=== PATIENT | female | born 2000 | race Caucasian/White ===

== ENCOUNTER 2023-04-25 15:26 | Emergency (ER) | payer OTHER, SELFPAY ==
[2023-04-25 15:42] VITALS: BP 128/72; PULSE 112; RESP 16; TEMP 36.9; O2SAT 99; BMI 26.8
--- NOTE | 2023-04-25 15:42 | ED_ITS ---
HPI - General Adult General Chief complaint: Skin/Abscess/Foreign Body Stated complaint: colonial cyst infection, urgent care didnt treat Time Seen by Provider: 04/25/23 17:10 Source: patient Mode of arrival: ambulatory Limitations: no limitations History of Present Illness HPI narrative: Patient is a 23 year old assigned female at with no reported medical history presenting to the emergency department today with a worsening buttock abscess. Patient states that she was seen at an urgent care 3 days ago where they told her that it wasn't bad enough to open yet and they started her on oral antibiotics. Patient states that the pain is getting worse. Patient denies any dizziness, lightheadedness, abdominal pain, nausea, vomiting, fever, chills, blurry vision, double vision, loss of vision, chest pain, difficulty breathing, shortness of breath, back pain, night sweats, pain with urination, increased urinary frequency, increased urinary urgency, blood in her urine or stool, syncope or a near syncopal episode, recent trauma or falls, bowel incontinence, bladder incontinence, bowel retention, bladder retention, or any other complaints at this time. Onset (ago): day(s) (4) Location: buttocks Radiation: non-radiation Severity: mild Severity scale (1-10): 3 Quality: aching and dull Pain Consistency: constant Relieving factors: none Exacerbating factors: none Associated symptoms: denies other symptoms Treatments prior to arrival: other (oral amoxicillin) Related Data Previous Rx's Medication Instructions Recorded cephalexin 500 mg capsule 500 mg PO Q6H 7 days #28 caps 04/25/23 Allergies Allergy/AdvReac Type Severity Reaction Status Date / Time No Known Allergies Allergy Verified 04/25/23 15:42 Review of Systems Constitutional: Constitutional: Reports no additional constitutional complaints, Denies chills, Denies fever(s) and Denies night sweats Eyes: Eyes: Reports no additional eye complaints, Denies blurry vision, Denies change in vision, Denies diplopia, Denies eye discharge, Denies loss of vision and Denies eye pain ENT: Denies dizziness Cardiovascular: Cardiovascular: Reports no additional cardiovascular complaints, Denies chest pain, Denies lightheadedness, Denies Loss of Cons ciousness and Denies dyspnea Respiratory: Respiratory: Reports no additional respiratory complaints and Denies dyspnea Gastrointestinal: Gastrointestinal: Reports no additional gastrointestinal complaints, Denies abdominal pain, Denies melena, Denies hematochezia, Denies change in bowel habits and Denies change in stool character Comments: gluteal cleft abscess Genitourinary: Genitourinary: Denies hematuria, Denies urinary frequency, Denies dysuria, Denies urinary incontinence, Denies urinary hesitancy and Denies urinary urgency Musculoskeletal: Musculoskeletal: Reports no additional musculoskeletal complaints, Denies numbness and Denies tingling Neurologic: Denies dizziness, Denies loss of vision, Denies numbness and Denies tingling Psychiatric: Psychiatric: Reports no additional psychiatric complaints Endocrine: Endocrine: Reports no additional endocrine complaints Hematologic/Lymphatic: Hematologic/Lymphatic: Reports no additional hematologic/lymphatic complaints Allergic/Immunologic: Allergic/Immunologic: Reports no additional allergic/immunologic complaints PMFSH Past Medical History Attestation statement: The following information was validated with the patient. Source: old records reviewed and nursing notes reviewed Social History Social History Advance Directives: No Advance Directives Information Provided: Yes Physical Exam ED Vital Signs: Vital Signs - 24 hr 04/25/23 15:42 Temperature 98.4 F Pulse Rate 112 H Respiratory Rate 16 Blood Pressure 128/72 Pulse Oximetry 99 Oxygen Delivery Method Room Air BMI result Body Mass Index 26.8 Const General: cooperative, no acute distress, alert and awake Nutritional Appearance: well nourished Orientation/consciousness: patient oriented x3 Limitations: no limitations [facility] [place] Head: Yes normal to inspection and Yes atraumatic Ears: hearing grossly normal bilaterally and external ears normal General nose exam: Normal external nose present, no nasal discharge noted and no epistaxis Face and sinus: Yes normal facial exam, No abrasion and No laceration Mouth: Normal oral and palatal mucosa present, no drooling and no muffled voice Eyes General: appearance normal, both eyes and all related structures Periorbital: periorbital findings normal Eyelids: Yes eyelids normal Conjunctivae: conjunctivae normal Pupils: Equal, round and reactive pupils present EOM: EOMs intact bilaterally Neck Neck: Yes normal visual inspection, Yes full ROM and Yes no lymphadenopathy Chest Chest palpation & inspection: normal inspection of the chest Resp Effort & Inspection: normal respiratory effort and able to speak in complete sentences GI Other: pilonidal abscess present to the upper aspect of the right gluteal cleft with minimal flutuance and erythema Neuro General: patient oriented x3 and moves all extremities Cranial nerves: Yes Equal, round and reactive pupils present Cognition (Neuro): normal cognition Motor exam (neuro): 5/5 motor strength present throughout Sensory Exam: Normal double simultaneous stimulation for sensation Coordination: [id number] test normal Extrem General: Yes normal to inspection, Yes full ROM and Yes capillary refill normal Psych Appearance: grossly normal Mental Status: mental status grossly normal Affect: normal affect Attitude: cooperative Thought process: Normal thought process present Thought content: Normal thought content present Insight: Good insight present (Psych) Course Course Course Narrative: This is a rapid medical exam: Additional HPI, ROS, PE not included below will be deferred to primary provider. Patient is a 23-year-old female presenting to the emergency department with complaint of pilonidal cyst, pain. States she went to urgent care 3 days ago, was discharged on amoxicillin, is on 3rd day, and was told to soak the area in bathtub. Patient states she does not have a bathtub. Denies prior episodes of similar symptoms. Reports has been symptomatic for 2 weeks. Also complains of nausea related to the pain. Denies fevers. Denies any spontaneous drainage since onset. Plan: labs Medications Administered Discontinued Medications Generic Name Dose Route Start Last Admin Trade Name Cuca PRN Reason Stop Dose Admin Acetaminophen 650 mg 04/25/23 18:43 04/25/23 18:53 Acetaminophen 325 Mg Tablet PO 04/25/23 18:44 650 mg ONCE ONE Administration Lidocaine HCl 5 ml 04/25/23 17:24 04/25/23 18:21 Lidocaine Hcl 1 % Mpf 5 Ml Vial SUBCUT 04/25/23 17:25 5 ml ONCE ONE Administration Procedures Abscess I/D Site: other (gluteal cleft) Side (if applicable): right Local Anesthetic: lidocaine 1% Amount of anesthesia used (mL): 5 Technique: incised with blade Amount of fluid expressed (mL): 15 Sent for culture/gram staining?: No Irrigation: No Packing used?: none Medical Decision Making Medical Decision Making MDM Narrative: Patient is a 23 year old assigned female at with no reported medical history presenting to the emergency department today with a pilonidal abscess. Patient's physical exam was as noted in the physical exam portion of this chart. Patient's blood work showed an elevated WBC count of 14.5 but was otherwise unremarkable. Patient's elevated white blood cell count is consistent with a pilonidal abscess. I explained my physical exam findings as well as all test results to the patient. I answered all questions asked by the patient. Patient's abscess was incised and drained, per procedure note, without incident. I stressed the importance of the patient taking her medication as prescribed. I stressed the importance of the patient following up with her primary care provider and with a general surgeon. I stressed the importance of the patient returning to the emergency department immediately if her symptoms were to worsen or if she were to develop any dizziness, shortness of breath, difficulty breathing, chest pain, blurry vision, loss of vision, nausea, vomiting, abdominal pain, fever, chills, back pain, or any other complaints. Patient verbalized agreement and understanding with this treatment plan and discharge. Differential Diagnosis Differential Diagnoses: The differential diagnosis associated with the presentation includes Pilonidal abscess Lab Data [facility] Lab Attestation statement: I reviewed the patient's lab results. My interpretation of these lab results are in the [facility] portion of this note. 04/25/23 15:59 04/25/23 15:59 Labs: Lab Results 04/25/23 04/25/23 Range/Units 15:59 15:59 WBC 14.5 H (4.8-10.8) X10*3/uL RBC 4.72 (4.20-5.50) X10*6/uL Hgb 13.0 (12.0-16.0) g/dl Hct 39.2 (37.0-47.0) % MCV 83.1 (80.0-98.0) fL MCH 27.5 (27.0-33.0) pg MCHC 33.2 (31.0-35.0) g/dl RDW 12.1 (11.0-16.0) % Plt Count 356 (160-400) X10*3/uL MPV 9.3 L (9.4-12.3) fL Immature Gran % (Auto) 0.5 H (0.0-0.4) % Neut % (Auto) 75.1 H (45-73) % Lymph % (Auto) 17.4 L (20-40) % Spalding % (Auto) 6.1 (2-11) % Eos % (Auto) 0.6 (0-4) % Baso % (Auto) 0.3 (0-2) % Lymph # (Auto) 2.5 (1.2-4.9) X10*3/uL Sp[place]ding # (Auto) 0.9 (0.1-1.2) X10*3/uL Eos # (Auto) 0.1 (0.0-0.4) X10*3/uL Baso # (Auto) 0.0 (0.0-0.2) X10*3/uL Abs Immat Gran (auto) 0.07 H (0.00-0.03) X10*3/uL Absolute Neuts (auto) 10.9 H (2.0-8.3) x10*3/uL Absolute Nucleated RBC 0.000 (0.0-0.012) X10*3/uL Nucleated RBC % (auto) 0.0 (0.0-0.2) /100WBC Sodium 137 (135-145) mmol/L Potassium 4.1 (3.3-5.1) mmol/L Chloride 104 (96-108) mmol/L Carbon Dioxide 21 L (22-29) mmol/L Anion Gap 16 (12-20) BUN 7 L (9-16) mg/dL Creatinine 0.70 (0.5-1.4) mg/dL Estim Creat Clear Calc 105.6 Estimated GFR > 60 Random Glucose 91 (60-115) mg/dL Calcium 9.8 (8.4-10.2) mg/dL Prescription Management I considered prescription management with: Antibiotic (patient prescribed an antibiotic. ) Discharge Plan Discharge Clinical Impression: Pilonidal abscess Patient Disposition: Home, Self-Care Instructions: Abscess Follow-up (ED) Additional Instructions: Do NOT soak the affected area. Apply a warm compress to the area. Take your antibiotics as prescribed. Follow up with your primary care provider and a general surgeon. Return to the emergency department immediately if your symptoms worsen or if you develop any dizziness, shortness of breath, difficulty breathing, chest pain, blurry vision, loss of vision, nausea, vomiting, abdominal pain, fever, chills, back pain, or any other complaints. Prescriptions: New cephalexin 500 mg capsule 500 mg PO Q6H 7 Days Qty: 28 0RF [place] [facility] [place]Provider Group] (Call to establish and follow up with a general surgeon.) Gabriella Fountain MD [Primary Care Provider] - Stand Alone Forms: Work/School Release Interventions: ED Discharge Assessment Last Done: 04/25/23 18:56 Discharge Date/Time: 04/25/23 18:56 Print Language: [place]
[2023-04-25 16:06] LABS: MANUAL DIFF FLAG NO
[2023-04-25 16:07] LABS: Basophils Percent Auto 0.3 % (0-2); Eosinophils Absolute Auto 0.1 X10*3/uL (0.0-0.4); Eosinophils Percent Auto 0.6 % (0-4); Hematocrit 39.2 % (37.0-47.0); Imm Gran Abs Auto 0.07 X10*3/uL (0.00-0.03); Imm Gran Pct Auto 0.5 % (0.0-0.4); Lymphocytes Absolute Auto 2.5 X10*3/uL (1.2-4.9); Lymphocytes Percent Auto 17.4 % (20-40); Mean Corpuscular HGB Conc 33.2 g/dl (31.0-35.0); Mean Corpuscular Hemoglobin 27.5 pg (27.0-33.0); Mean Corpuscular Volume 83.1 fL (80.0-98.0); Mean Platelet Volume 9.3 fL (9.4-12.3); Monocytes Absolute Auto 0.9 X10*3/uL (0.1-1.2); Monocytes Percent Auto 6.1 % (2-11); Neutrophils Absolute Auto 10.9 x10*3/uL (2.0-8.3); Neutrophils Percent Auto 75.1 % (45-73); Platelet Count 356 X10*3/uL (160-400); Red Blood Count 4.72 X10*6/uL (4.20-5.50); Red Cell Distribution Width 12.1 % (11.0-16.0); White Blood Count 14.5 X10*3/uL (4.8-10.8)
[2023-04-25 16:25] LABS: Anion Gap 16 (12-20); Blood Urea Nitrogen 7 mg/dL (9-16); Calcium 9.8 mg/dL (8.4-10.2); Carbon Dioxide 21 mmol/L (22-29); Chloride 104 mmol/L (96-108); Creatinine Clr Calc Pharmacy 105.6; Estimated Glomerular Filt Rate > 60; Glucose Random 91 mg/dL (60-115); Potassium 4.1 mmol/L (3.3-5.1); Sodium 137 mmol/L (135-145)
[2023-04-25] MEDS: Lidocaine HCl 1 % MPF 5 ML VIAL SUBCUT (18:21)
[2023-04-25] MEDS: Acetaminophen 325 MG TABLET 650 MG PO (18:53)
== END 2023-04-25 18:56 | disposition home or self-care (01) ==
PROVIDERS: Registered Nurse Emergency; Emergency Provider Emergency Medicine Emergency Medical Services; PCP Internal Medicine
DX: L05.01 Pilonidal cyst with abscess (principal); Z79.899 Other long term (current) drug therapy
CPT/HCPCS: 10060; 36415; 80048; 85025; 99283; 99284

== ENCOUNTER 2023-05-01 15:01 | Outpatient (AMB) | payer BC, OTHER, SELFPAY ==
[2023-05-01 15:02] VITALS: BP 125/64; PULSE 83; BMI 27.6
--- NOTE | 2023-05-01 15:02 | MHC.OFFVIS ---
Intake Vital Signs 05/01/23 15:02 Height 5 ft 1 in Weight 146 lb BMI 27.6 BP 125/64 Blood Pressure Location Rt brachial Position Sitting Pulse 83 Intake Visit Reasons: Pilonidal abscess Intake Note: This patient presents for [facility] [place] emergency department follow-up for pilonidal abscess. Patient c/o; reports last episode of draining was Friday04/29/23, reports having one more 1 pill to complete cephalexin course, denies pain. Budget Record Clerk Required: No Accompanied by: Child Allergies No Known Allergies Allergy (Verified 05/01/23 15:10) Medication List - Last Reconciled 05/01/23 by Abisai Carmona MD cephalexin 500 mg PO Q6H 7 days HPI Pilonidal abscess HPI Details 23-year-old female referred for a pilonidal disease. She went to the ER last 04/25/2023 because of pain and swelling on the sacrococcygeal area. This was deemed to be a pilonidal abscess and she underwent an I and D there and was instructed to see me in the office. She says she was placed on oral antibiotics as well. She has noted improvement although there is still some persistent swelling. She does state that she has had a lump on the area for several weeks prior to this becoming painful and swollen. [facility] Medical History (Updated 05/01/23 @ 15:06 by Abisai Carmona MD) Pilonidal disease Review of Systems Const Denies chills and Denies fever(s) Card Denies chest pain, Denies dyspnea and Denies dyspnea on exertion Resp Denies cough, Denies dyspnea and Denies dyspnea on exertion GI Denies hematochezia and Denies change in bowel habits Denies hematuria Musc Denies back pain and Denies limited range of motion Neuro Denies focal weakness and Denies convulsions Psych Denies depression and Denies mood swings Physical Exam Const General: comfortable and no acute distress Orientation/consciousness: patient oriented x3 Neck Neck: Yes no lymphadenopathy Resp Auscultation: clear to auscultation bilaterally Cardio Rhythm: regular rhythm GI Palpation (GI): Soft to palpation, nontender and no guarding Back/Spine/Pelvis Other: Induration to the right of the midline in the sacrococcygeal area, about 2 cm in diameter, midline pits in the gluteal cleft Neuro General: patient oriented x3 Assessment & Plan Assessment & Plan (1) Pilonidal disease: Code(s): L98.8 - Other specified disorders of the skin and subcutaneous tissue Plan: She had an I and D of pilonidal abscess in the ER and there is some persistent induration. She also has midline pits in the gluteal cleft. I explained the technique of excision in the operating room which will be under anesthesia. I reviewed the risks including but not limited to bleeding, infections, recurrence, poor healing, postop pain, as well as the benefits and alternatives. She wants to proceed. She understands what to expect postoperatively. Coding Level of Care Code New Pt Level 3 (60548) Diagnoses Pilonidal disease L98.8
== END 2023-05-01 15:25 | disposition home or self-care (01) ==
PROVIDERS: PCP Internal Medicine; Visit Provider Surgery
DX: L98.8 Other specified disorders of the skin and subcutaneous tissue (principal)
CPT/HCPCS: 99203

== ENCOUNTER → 2023-05-01 15:01 | Outpatient (BNVA) | payer OTHER, SELFPAY | PROVIDERS: PCP Internal Medicine; Visit Provider Surgery | DX: L98.8 Other specified disorders of the skin and subcutaneous tissue (principal); Z79.2 Long term (current) use of antibiotics | CPT/HCPCS: 99202 ==

== ENCOUNTER 2023-06-03 08:34 | Day surgery (SDC) | payer BC, OTHER, SELFPAY ==
[2023-05-29 08:25] VITALS: BMI 27.6
--- NOTE | 2023-05-30 09:59 | HO.ANESPROP2 ---
HPI - Anesthesia Eval Consult details Narrative: 23yo F for Excision Pilonidal Cyst sacroccygeal area PMFSH Active Problems Active Problems: All Active Problems (Updated 05/01/23 @ 15:06 by Abisai Carmona MD) Pilonidal disease (Acute) Past Medical History Medical History (Updated 05/01/23 @ 15:06 by Abisai Carmona MD) Pilonidal disease Meds Allergies Allergy/AdvReac Type Severity Reaction Status Date / Time No Known Allergies Allergy Verified 05/01/23 15:10 Exam Exam Date and Time: May 30, 2023 0959 Height,Weight and Vital Signs: Height 5 ft 1 in Weight 66.224 kg Pertinent Lab Results Pertinent Lab Results: Laboratory Tests 04/25/23 04/25/23 15:59 15:59 WBC 14.5 H Hgb 13.0 Hct 39.2 Plt Count 356 Sodium 137 Potassium 4.1 Chloride 104 Carbon Dioxide 21 L BUN 7 L Creatinine 0.70 Assessment and Plan Assessment Anesthesia Assessment: Chart Reviewed
[2023-06-03] VITALS (7 sets, daily range): BP systolic 99–129; BP diastolic 44–72; PULSE 76–112; RESP 16–18; TEMP 36.1–36.8; O2SAT 98–100
[2023-06-03] MEDS: Lactated Ringers 1,000 ML 100 ML IVCONT (08:56)
[2023-06-03 08:58] LABS: UPreg QC Valid YES; Urine Pregnancy NEGATIVE (NEGATIVE)
--- NOTE | 2023-06-03 09:05 | P.CONAN_ITS ---
[facility] Active Problems Active Problems: All Active Problems (Updated 05/01/23 @ 15:06 by Abisai Carmona MD) Pilonidal disease (Acute) Past Medical History Medical History Pilonidal disease Family History Family history of problems with anesthesia: No Surgical History History of Problems with Anesthesia: No Social History Social History Patient Tobacco Use Status: Never used Tobacco Are you DNR?: No Advance Directives: No Advance Directives Information Provided: Yes Nutrition Risks: No Nutritional Risk FDLMP: 05/06/23 Meds Allergies Allergy/AdvReac Type Severity Reaction Status Date / Time No Known Allergies Allergy Verified 06/03/23 08:58 Active Medications: Current Medications Lactated Ringer's (Lr) 1,000 mls @ 100 mls/hr IVCONT .Q10H MYRTLE Last Admin: 06/03/23 08:56 Dose: 100 mls/hr Cefazolin Sodium/Dextrose (Ancef) 2 gm in 50 mls @ 100 mls/hr IV PREOP ONE Stop: 06/03/23 09:06 Home Medications Medication Instructions Recorded Confirmed Last Taken Type No Known Home Meds 06/03/23 06/03/23 Unknown History Exam Exam Date and Time: June 03, 2023 09 Height,Weight and Vital Signs: Height 5 ft 1 in Weight 66.224 kg Last Vital Signs Temp 98.2 F 06/03/23 08:56 Pulse 77 06/03/23 08:56 Resp 18 06/03/23 08:56 BP 129/71 06/03/23 08:56 Pulse Ox 98 06/03/23 08:56 O2 Del Method Room Air 06/03/23 08:56 Pertinent Lab Results Pertinent Lab Results: Laboratory Tests 06/03/23 08:30 Urine Test NEGATIVE Airway Mallampati Class: II TM Dist: >3cm Neck ROM: Full Heart: S1S2 w/o murmur Lungs: clear Assessment and Plan Assessment Anesthesia Assessment: Anesthesia Plan Discussed and Chart Reviewed Final Anesthetic Review Family History of Problems with Anesthesia: No History of Problems with Anesthesia: No NPO: Yes ASA Class: I Final Preanesthetic Review: No Changes in Pt Med Stat, Meds/Allgs Chart Reviewed, Consent Obtained/Reviewed and Anes Risks/Benef Reviewed Patient Risk: Low Procedure Risk: Low Anesthetic Plan Anesthetic Plan: GA Disposition: Standard PACU
--- NOTE | 2023-06-03 09:32 | MHC.SHP ---
Pre-Procedural Eval Section A Date of Service: 06/03/23 Section B Chief Complaint: Other specified disorders of the skin and subcutan Details of Present Illness: Area of induration and drainage with midline pits in the sacrococcygeal region Relevant Family History (Specify if Yes): No Relevant Social History: None Present Medications: see Short Stay Collaborative assessment Medical History: No relevant PMH Allergies: Allergies Allergy/AdvReac Type Severity Reaction Status Date / Time No Known Allergies Allergy Verified 06/03/23 08:58 Review of Systems Sugical H&P ROS: Negative: Constitution, Cardiovascular, Respiratory, Neurological, Psychiatric, Hem-Onc, Allergic/Immunologic, Gastrointestinal, Genitourinary, Musculoskeletal, Integumentary, Endocrine and Eyes/Ears/Nose/Throat Exam Surgical H&P Exam: Normal: HEENT, Normal: Heart, Normal: Lungs, Normal: Extremities, Normal: Abdomen, Normal: Skin and Normal: Neurological Exam Comment: pilonidal cyst sacrococcygeal area Plan I have reviewed the history and physical and performed a pertinent physical examination on my patient. No changes have occurred unless specified. Time Spent With Patient Time: Total time managing care of this patient today ____ minutes.
--- NOTE | 2023-06-03 09:53 | PC.NURSE ---
patient had allergic reaction when IV antibiotic was started by anesthesia. facial/chest redness and hives noted to face. patient began vomiting. dr. garcia ordered benadryl and will be given. surgery delayed to later case due to reaction. will continue to assess. patient breathing easily and well.
--- NOTE | 2023-06-03 09:56 | HO.ANESEVENT ---
Anesthesia Event Note Date of Service: 06/03/23 Event Note: 0950: The patient was given 2G cefazolin in preop over about 10 min and developed a diffuse blotchy erythematous rash w hives. No wheezes or tracheal sounds. HR 80s, BP 129/77, Sat 99% room air. Rash and hives resolving within minutes. Benedryl 25mg ordered. Presumed allergy to cefazolin noted. Surgery delayed for about 1 hour while we monitor the patient..
[2023-06-03] MEDS: diphenhydrAMINE HCL 50 MG/ML VIAL 25 MG IVPUSH (09:58)
--- NOTE | 2023-06-03 11:28 | PC.NURSE ---
patient responded well to benadryl administration. redness, blotches, hives have all resolved.
--- NOTE | 2023-06-03 12:07 | W.PM.OPN ---
Operative Note Operative Note Date of Service: 06/03/23 Narrative: Preop diagnosis: Pilonidal cyst, sacrococcygeal area Postop diagnosis: The same Procedure: Excision of pilonidal cyst, sacrococcygeal area Surgeon: Abisai Carmona MD The patient is a 23-year-old female with recent pilonidal abscess. She was seen in the office and was noted to have an induration the sacrococcygeal area to the right of midline along with midline pits. This was consistent with her pilonidal disease. In view of the risk of recurrence, she wanted to proceed with excision. She understood the technique of excision and was aware of the risks, benefits, and alternatives. She was brought to the operating room and placed in prone position under general anesthesia via laryngeal mask airway. The buttocks were retracted with wide tape laterally. The sacrococcygeal area was prepped and draped in the usual sterile fashion. A surgical time-out was done. The patient received cefazolin 2 g IV preoperativel. She did develop a rash earlier consistent with an allergic reaction to cefazolin. She did not have any anaphylactic symptoms. There was note of an induration on the right of the midline of the sacrococcygeal area with very fine midline pits in the cleft. I marked my planned line of incision and infiltrated this with lidocaine 1%. I made an elliptical incision on the skin using blade 15. To include this indurated area as well as the midline pits. This was carried down through the full-thickness of the skin subcutaneous fat using electrocautery. I excised this entire area of induration. This was sent as specimen. The excised area was about 3.5 x 1.5 cm I used electrocautery to achieve hemostasis. Once hemostasis was confirmed, I irrigated. I reapposed the deep subcutaneous layer with interrupted 3-0 simple interrupted sutures. Skin closure was achieved with nylon 3-0 simple interrupted sutures alternating with vertical mattress sutures. I infiltrated the area with Marcaine 0.5% for postop analgesia. Dressings were applied. The procedure was then completed The patient tolerated procedure well. There were no immediate complications. Initial and final counts of sponges and instruments were correct. Estimated blood loss about 20 cc. The patient was extubated without difficulty and transferred to the recovery room with stable vital signs.
== END 2023-06-03 13:26 | disposition home or self-care (01) ==
PROVIDERS: Nurse Practitioner; PCP Internal Medicine; Visit Provider Surgery
PROC: (CPT 11771; principal; 2023-06-03 10:20)
DX: L05.01 Pilonidal cyst with abscess (principal); L76.81 Other intraoperative complications of skin and subcutaneous tissue; L27.0 Generalized skin eruption due to drugs and medicaments taken internally; T36.1X5A Adverse effect of cephalosporins and other beta-lactam antibiotics, initial encounter; Y92.238 Other place in hospital as the place of occurrence of the external cause
CPT/HCPCS: 11771; 81025; 88304; J0690; J1200; J1885; J2250; J2405; J2795; J3010

== ENCOUNTER → 2023-06-03 08:34 | Outpatient (BNV) | payer BC, OTHER, SELFPAY | PROVIDERS: PCP Internal Medicine; Visit Provider Surgery | DX: L05.91 Pilonidal cyst without abscess (principal) | CPT/HCPCS: 11771 ==

== ENCOUNTER 2023-06-16 15:44 | Outpatient (AMB) | payer OTHER, SELFPAY ==
--- NOTE | 2023-06-16 15:46 | MHC.OFFVIS ---
Intake Vital Signs 06/16/23 15:55 Weight 145 lb BP 135/62 Blood Pressure Location Rt brachial Position Sitting Pulse 87 Intake Visit Reasons: S/P excision pilonidal cyst Intake Note: This patient presents for a post-op assessment status post excision pilonidal cyst. Patient c/o; reports odor, reports feeling numbness when sitting for prolongs periods of time,denies feeling feverish or having a fever. Equal Opportunity Representative Required: No Accompanied by: Self / Same As Patient Allergies cefazolin Allergy (Verified 06/16/23 15:57) Hives HPI S/P excision pilonidal cyst HPI Details She underwent excision of a pilonidal cyst from the sacrococcygeal area last 06/03/2023. She tolerated procedure well. She currently denies significant complaints. [facility] Medical History Pilonidal disease Surgical History History of excision of pilonidal cyst (~06/03/23) Social History Patient Tobacco Use Status: Never used Tobacco Review of Systems Const Denies chills and Denies fever(s) Card Denies chest pain, Denies dyspnea and Denies dyspnea on exertion Resp Denies cough, Denies dyspnea and Denies dyspnea on exertion GI Denies hematochezia and Denies change in bowel habits Denies hematuria Musc Denies back pain and Denies limited range of motion Neuro Denies focal weakness and Denies convulsions Psych Denies depression and Denies mood swings Physical Exam Vital Signs: Last Vital Signs Pulse 87 06/16/23 15:55 BP 135/62 06/16/23 15:55 Const General: comfortable and no acute distress Back/Spine/Pelvis Other: Excision site on the sacrococcygeal area is well healing, not infected, sutures intact, no induration or cellulitis Assessment & Plan Assessment & Plan (1) Pilonidal disease: Code(s): L98.8 - Other specified disorders of the skin and subcutaneous tissue Plan: Status post excision. Her incision is healing well. I removed all her sutures. I explained to her the importance of maintaining good hygiene on the area. I will see her again in the office in about a month for another wound check. She can return to work without restrictions starting 06/30/2023. Coding Level of Care Code Global (18824) Diagnoses Pilonidal disease L98.8
[2023-06-16 15:55] VITALS: BP 135/62; PULSE 87
== END 2023-06-16 16:06 | disposition home or self-care (01) ==
PROVIDERS: PCP Internal Medicine; Visit Provider Surgery
DX: L98.8 Other specified disorders of the skin and subcutaneous tissue (principal)
CPT/HCPCS: 99024

== ENCOUNTER → 2023-06-16 15:44 | Outpatient (BNVA) | payer OTHER, SELFPAY | PROVIDERS: PCP Internal Medicine; Visit Provider Surgery ==

== ENCOUNTER 2023-07-14 15:54 | Outpatient (AMB) | payer OTHER, SELFPAY ==
--- NOTE | 2023-07-14 15:57 | A.OFFVIS_ITS ---
Intake Vital Signs 07/14/23 16:03 Weight 150 lb BP 123/58 L Blood Pressure Location Rt brachial Position Sitting Pulse 77 Intake Visit Reasons: S/P excision pilonidal cyst, wound check Intake Note: This patient presents for a follow-up assessment status post excision pilonidal cyst, wound check. Patient c/o; reports bleeding from wound, reports purplish color. 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 She is doing well. She describes some occasional bleeding from a residual wound on the excision site. Overall, she says she is feeling well and denies pain. [facility] Medical History Pilonidal disease Surgical History History of excision of pilonidal cyst (~06/03/23) Social History Patient Tobacco Use Status: Never used Tobacco Review of Systems Const Denies chills and Denies fever(s) Card Denies chest pain Resp Denies cough Physical Exam Vital Signs: Last Vital Signs Pulse 77 07/14/23 16:03 BP 123/58 L 07/14/23 16:03 Const General: comfortable and no acute distress Back/Spine/Pelvis Other: Excision site on the sacrococcygeal area except for a 3-4 mm open wound in the gluteal cleft. This has good granulation with no residual induration or discharge Assessment & Plan Assessment & Plan (1) Pilonidal disease: Code(s): L98.8 - Other specified disorders of the skin and subcutaneous tissue Plan: Status post excision. The incision is almost completely healed except for a small area within the gluteal cleft. I told her there is good granulation tissue and I expect this to continue to heal and re-epithelialization completely. I will see her again in the office in about a month to check on this. Coding Level of Care Code Global (61424) Diagnoses Pilonidal disease L98.8
[2023-07-14 16:03] VITALS: BP 123/58; PULSE 77
== END 2023-07-14 16:14 | disposition home or self-care (01) ==
PROVIDERS: PCP Internal Medicine; Visit Provider Surgery
DX: L98.8 Other specified disorders of the skin and subcutaneous tissue (principal)
CPT/HCPCS: 99024

== ENCOUNTER → 2023-07-14 15:54 | Outpatient (BNVA) | payer OTHER, SELFPAY | PROVIDERS: PCP Internal Medicine; Visit Provider Surgery ==

== ENCOUNTER 2023-08-14 15:45 | Outpatient (AMB) | payer OTHER, SELFPAY ==
--- NOTE | 2023-08-14 15:46 | A.OFFVIS_ITS ---
Intake Vital Signs 08/14/23 15:51 Weight 150 lb BP 120/56 L Blood Pressure Location Rt brachial Position Sitting Pulse 75 Intake Visit Reasons: one month S/P excision pilonidal cys Intake Note: This patient presents for a one month follow-up assessment status post excision of pilonidal cyst. Patient c/o; reports no complaints at this time. 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 She continues to do well. She says that her pain has resolved. She says that the discharge has decreased significantly. She says she feels well overall. [facility] Medical History Pilonidal disease Surgical History History of excision of pilonidal cyst (~06/03/23) Social History Patient Tobacco Use Status: Never used Tobacco Review of Systems Const Denies chills and Denies fever(s) Card Denies chest pain, Denies dyspnea and Denies dyspnea on exertion Resp Denies cough, Denies dyspnea and Denies dyspnea on exertion GI Denies hematochezia and Denies change in bowel habits Denies hematuria Musc Denies back pain and Denies limited range of motion Neuro Denies focal weakness and Denies convulsions Psych Denies depression and Denies mood swings Physical Exam Vital Signs: Last Vital Signs Pulse 75 08/14/23 15:51 BP 120/56 L 08/14/23 15:51 Const General: comfortable and no acute distress Resp Effort & Inspection: normal respiratory effort Back/Spine/Pelvis Other: Excision site on the sacrococcygeal area is actually well healed, no induration, no redness, no active discharge Assessment & Plan Assessment & Plan (1) Pilonidal disease: Code(s): L98.8 - Other specified disorders of the skin and subcutaneous tissue Plan: status post excision. She continues to do well. The incision is well healed. There was no induration or any discharge. I told her that she can always call us to be evaluated if she has any concerns down the line. Otherwise she can follow up on a p.r.n. basis Coding Level of Care Code Global (25316) Diagnoses Pilonidal disease L98.8
[2023-08-14 15:51] VITALS: BP 120/56; PULSE 75
== END 2023-08-14 15:53 | disposition home or self-care (01) ==
PROVIDERS: PCP Internal Medicine; Visit Provider Surgery
DX: L98.8 Other specified disorders of the skin and subcutaneous tissue (principal)
CPT/HCPCS: 99024

== ENCOUNTER → 2023-08-14 15:45 | Outpatient (BNVA) | payer OTHER, SELFPAY | PROVIDERS: PCP Internal Medicine; Visit Provider Surgery ==